=== PATIENT | male | born 1990 | race Caucasian/White ===

== ENCOUNTER 2024-02-25 18:53 | Emergency (ER) | payer SELFPAY ==
[2024-02-25 19:06] VITALS: BP 130/88; PULSE 95; RESP 18; TEMP 36.4; O2SAT 100
--- NOTE | 2024-02-25 19:16 | W.ED.NAVMDI ---
HPI - Nausea/Vomiting/Diarrhea General: Chief complaint: Nausea/Vomiting/Diarrhea Stated complaint: n/v/d, possible allergic rxn to fish antibotics Time Seen by Provider: 02/25/24 19:10 History of Present Illness: Patient presents to the ER complaining of nausea vomiting diarrhea. Patient says he has a dental abscess on his right upper side and he went and bought [id number] fish amoxicillin and took 1000 mg at once today at approximately 1 PM. By 4 PM he was feeling very sick throwing up and having diarrhea. Patient has taken amoxicillin before but is never taken this [id number] fish amoxicillin before. Patient was not feeling sick to his stomach before he took the amoxicillin. Review of Systems General: Reports: 10 or more systems reviewed and unremarkable except in HPI and below Physical Exam Const: COMMON NORMALS: no acute distress, average body habitus, patient oriented x3, no limitations, healthy appearing, alert and well nourished Neck/C-Spine: COMMON NORMALS: no JVD Resp: COMMON NORMALS: normal respiratory effort, No retractions, No use of accessory muscles and clear to auscultation bilaterally AUSCULTATION: clear to auscultation bilaterally Cardio: COMMON NORMALS: no JVD, regular rate, regular rhythm, S1 normal heart sound present, S2 normal heart sound present, No gallops present (Cardio), No clicks present (Cardio), No murmurs present (Cardio) and No rub (Cardio) RATE: regular rate RHYTHM: regular rhythm HEART SOUNDS: S1 normal heart sound present and S2 normal heart sound present GI: COMMON NORMALS: Normal to inspection, nondistended, normoactive bowel sounds present, Soft to palpation, non-tender, No hepatosplenomegaly present and no masses PALPATION: Yes Soft to palpation and Yes No hepatosplenomegaly present Neuro: COMMON NORMALS: patient oriented x3 SENSORIUM/ORIENTATION: Yes alert Course Vital Signs: Vital signs: Vital Signs Temperature 97.6 F 02/25/24 19:06 Pulse Rate 93 02/25/24 19:44 Respiratory Rate 16 02/25/24 19:44 Blood Pressure 117/71 02/25/24 19:44 Pulse Oximetry 94 02/25/24 19:44 Oxygen Delivery Me thod Room Air 02/25/24 19:06 MDM - Nausea/Vomiting/Diarrhea Medical Decision Making Patient took [id number]-kpzlijx fish amoxicillin and obviously did not agree with his stomach. Patient was given Zofran here in ER and this helped his nausea. Patient is wanting to wait until he sees a dentist to get a more antibiotics. Patient be sent home with a prescription for Zofran just in case. Differential Diagnosis Unlikely traveler's diarrhea, food poisoning, gastroenteritis, clostridium difficile infection, drug-induced nausea and vomiting or dehydration Medical Records I reviewed the patient's medical records. Lab Data I reviewed the patient's lab results. No radiology studies performed this visit Discharge Plan Discharge Patient Disposition: Home Clinical Impression: Drug-induced nausea and vomiting Condition: Stable Prescriptions: New ondansetron HCl 4 mg tablet 4 mg PO Q8H PRN (Reason: nausea and vomiting) Qty: 14 0RF Discharge Orders: Discharge ED (Routine); Ordered 02/25/24 Ordered By: Ori Blackburn Patient Instructions: Acute Nausea and Vomiting (DC) Activity Restrictions/Additional Instructions: Please take your Zofran prescription for nausea as needed. Please do not take anymore the fish antibiotics. Please keep your appointment to follow-up with your dentist for further evaluation and treatment. Coding Level of Care Code ED Generator Assembler for Milka Barillas
[2024-02-25] MEDS: ondansetron 4 MG Tablet 8 MG PO (19:19)
[2024-02-25 19:25] VITALS: BP 126/108; PULSE 71; RESP 18; O2SAT 97
[2024-02-25 19:44] VITALS: BP 117/71; PULSE 93; RESP 16; O2SAT 94
== END 2024-02-25 19:45 | disposition home or self-care (01) ==
PROVIDERS: Emergency Provider Emergency Medicine
DX: R11.2 Nausea with vomiting, unspecified (principal); T36.0X5A Adverse effect of penicillins, initial encounter
CPT/HCPCS: 99283; Q0162